=== PATIENT | female | born 1960 | race Caucasian/White ===

== ENCOUNTER 2016-12-28 12:57 | Emergency (ER) | payer MEDICARE, MEDICAID ==
[~2016-12-28] VITALS: Ht 152.4 cm; Wt 52.3 kg
[~2016-12-28 12:57] MED LIST: BENZ1TAB10 PO; DIVA500T35 PO; DSS100 PO; LISI-661 PO; METF500T4 PO; OMEP20 PO; RISPC50 IM; SIMV-260 PO
[2016-12-28 13:17] LABS: GLUCOSE,POINT OF CARE 254 MG/DL (70-110)
[2016-12-28] MEDS ORDERED: GLIP5 PO (13:25)
[2016-12-28] MEDS ORDERED: QUET200T PO (13:25)
[2016-12-28] MEDS ORDERED: LIDOCAINE HCL 1%/EPI 1:200,000/PF 10 ML VIAL INJ ONE (13:45)
[2016-12-28] MEDS ORDERED: ACETAMINOPHEN 500 MG TABLET PO ONE (14:00)
[2016-12-28 14:27] VITALS: BP 140/9
== END 2016-12-28 15:03 | disposition home or self-care (01) ==
LOC: EMS 12:59
DX: S01.111A Laceration without foreign body of right eyelid and periocular area, initial encounter (principal); E11.9 Type 2 diabetes mellitus without complications; I10 Essential (primary) hypertension; F17.200 Nicotine dependence, unspecified, uncomplicated; Z88.0 Allergy status to penicillin; Y08.89XA Assault by other specified means, initial encounter; Y93.89 Activity, other specified; Y92.89 Other specified places as the place of occurrence of the external cause; Y99.8 Other external cause status
CPT/HCPCS: 12011; 82962; 99283; J3490

== ENCOUNTER 2017-03-11 12:25 | Emergency (ER) | payer MEDICARE, MEDICAID ==
[~2017-03-11] VITALS: Ht 154.9 cm; Wt 54.5 kg
[~2017-03-11 12:25] MED LIST changes: -DIVA500T35 PO; -DSS100 PO; +GLIP5 PO; -OMEP20 PO; +QUET200T PO; -RISPC50 IM; -SIMV-260 PO
[2017-03-11 12:47] LABS: GLUCOSE,POINT OF CARE 164 MG/DL (70-110)
[2017-03-11 13:16] VITALS: BP 154/81
== END 2017-03-11 15:36 | disposition left against medical advice (07) ==
LOC: EMS 12:27
DX: S13.4XXA Sprain of ligaments of cervical spine, initial encounter (principal); S00.83XA Contusion of other part of head, initial encounter; E11.9 Type 2 diabetes mellitus without complications; I10 Essential (primary) hypertension; F17.210 Nicotine dependence, cigarettes, uncomplicated; Z88.0 Allergy status to penicillin; Y04.2XXA Assault by strike against or bumped into by another person, initial encounter; Y93.89 Activity, other specified; Y92.89 Other specified places as the place of occurrence of the external cause; Y99.8 Other external cause status
CPT/HCPCS: 82962; 99283

== ENCOUNTER 2017-03-21 18:30 | Emergency (ER) | payer MEDICARE, MEDICAID ==
[~2017-03-21] VITALS: Ht 154.9 cm; Wt 52.0 kg
[2017-03-21 18:32] VITALS: BP 133/90
[2017-03-21 18:47] LABS: GLUCOSE,POINT OF CARE 195 MG/DL (70-110)
[2017-03-21 19:29] LABS: APPEARANCE,URINE CLEAR (CLEAR); GLUCOSE, URINE (UA) NEGATIVE (NEGATIVE); KETONES,URINE NEGATIVE (NEGATIVE); LEUKOCYTE ESTERASE ,URINE SMALL (NEGATIVE); OCCULT BLOOD,URINE NEGATIVE (NEGATIVE); PROTEIN,URINE NEGATIVE (NEGATIVE)
[2017-03-21 19:30] LABS: ADD UA MICROSCOPIC YES
[2017-03-21 19:31] LABS: RBC,URINE 0-2 /HPF (0-2); SQUAMOUS EPITHELIAL CELL,UR Few /LPF (None Seen); WBC,URINE 26-50 /HPF (0-5)
[2017-03-21 19:54] LABS: BASOPHILS % (AUTO) 0.5 % (0.0-2.0); EOSINOPHILS % (AUTO) 3.5 % (1.0-6.0); HEMATOCRIT 36.7 % (36-46); HEMOGLOBIN 12.3 g/dL (12.0-16.0); LYMPHOCYTES # (AUTO) 2.2 K/uL (1.0-4.8); LYMPHOCYTES % (AUTO) 39.2 % (22.0-44.0); MEAN CORPUSCULAR HEMOGLOBIN 29.3 pg (26.0-34.0); MEAN CORPUSCULAR HGB CONC 33.7 G/dL (31.0-37.0); MEAN CORPUSCULAR VOLUME 87 fL (80-100); MONOCYTES # (AUTO) 0.4 K/uL (0.1-1.0); MONOCYTES % (AUTO) 7.5 % (2.0-9.0); NEUTROPHILS # (AUTO) 2.8 K/uL (1.8-7.7); NEUTROPHILS % (AUTO) 49.3 % (40.0-70.0); PLATELET COUNT (AUTO) 293 K/uL (150-450); RED BLOOD CELL COUNT(AUTO) 4.21 MIL/uL (4.00-5.20); RED CELL DISTRIBUTION WIDTH 14.7 % (11.5-14.5); WHITE BLOOD COUNT (AUTO) 5.6 K/uL (4.5-11.0)
[2017-03-21 20:03] LABS: ANION GAP 10 mmol/L (8-16); CALCIUM, TOTAL 8.9 mg/dL (8.8-10.5); CARBON DIOXIDE 26 mmol/L (22-29); CHLORIDE 104 mmol/L (98-107); CREATININE 0.84 mg/dL (0.60-1.30); GLOMERULAR FILTR. RATE CALC > 60 mL/min (>60); POTASSIUM 3.6 mmol/L (3.5-5.1); SODIUM SERUM 140 mmol/L (136-145); UREA NITROGEN, BLOOD 11 mg/dL (7-18)
[2017-03-21 20:17] LABS: ALANINE AMINOTRANSFERASE 16 U/L (12-78); ALBUMIN 3.4 g/dL (3.4-5.0); ASPARTATE AMINOTRANSFERASE 17 U/L (15-37); BILIRUBIN,TOTAL 0.2 mg/dL (0.1-1.0); TOTAL PROTEIN, SERUM 6.7 g/dL (6.4-8.2)
== END 2017-03-21 21:04 | disposition left against medical advice (07) ==
LOC: EMS 18:31
DX: N39.0 Urinary tract infection, site not specified (principal); I10 Essential (primary) hypertension; E11.9 Type 2 diabetes mellitus without complications; F17.200 Nicotine dependence, unspecified, uncomplicated; Z88.0 Allergy status to penicillin
CPT/HCPCS: 82962; 87086; 93005; 99285

== ENCOUNTER 2017-04-02 08:20 | Emergency (ER) | payer MEDICARE, MEDICAID ==
[~2017-04-02] VITALS: Ht 154.9 cm; Wt 52.2 kg
[2017-04-02 08:23] VITALS: BP 158/96
[2017-04-02] MEDS ORDERED: HALO1 PO (08:25)
== END 2017-04-02 08:40 | disposition left against medical advice (07) ==
LOC: EMS 08:21
DX: Z76.0 Encounter for issue of repeat prescription (principal); E11.9 Type 2 diabetes mellitus without complications; I10 Essential (primary) hypertension; F17.210 Nicotine dependence, cigarettes, uncomplicated; Z88.0 Allergy status to penicillin
CPT/HCPCS: 82962; 99281; 99282

== ENCOUNTER 2018-08-15 12:09 | Inpatient (IN) | payer MEDICARE, MEDICAID ==
[~2018-08-15] VITALS: Ht 152.4 cm; Wt 49.6 kg
[~2018-08-15 12:09] MED LIST changes: +HALO1 PO; +METF-960 PO; -METF500T4 PO
[2018-08-15 15:44] LABS: BASOPHILS % (AUTO) 0.7 % (0.0-2.0); EOSINOPHILS % (AUTO) 1.6 % (1.0-6.0); HEMATOCRIT 42.6 % (36-46); HEMOGLOBIN 14.2 g/dL (12.0-16.0); LYMPHOCYTES # (AUTO) 1.7 K/uL (1.0-4.8); LYMPHOCYTES % (AUTO) 24.4 % (22.0-44.0); MEAN CORPUSCULAR HEMOGLOBIN 30.3 pg (26.0-34.0); MEAN CORPUSCULAR HGB CONC 33.4 G/dL (31.0-37.0); MEAN CORPUSCULAR VOLUME 91 fL (80-100); MONOCYTES # (AUTO) 0.4 K/uL (0.1-1.0); MONOCYTES % (AUTO) 5.2 % (2.0-9.0); NEUTROPHILS # (AUTO) 4.7 K/uL (1.8-7.7); NEUTROPHILS % (AUTO) 68.1 % (40.0-70.0); PLATELET COUNT (AUTO) 363 K/uL (150-450); RED BLOOD CELL COUNT(AUTO) 4.69 MIL/uL (4.00-5.20); RED CELL DISTRIBUTION WIDTH 13.2 % (11.5-14.5)
[2018-08-15 15:48] LABS: ANION GAP 12 mmol/L (8-16); CALCIUM, TOTAL 8.8 mg/dL (8.8-10.5); CARBON DIOXIDE 26 mmol/L (22-29); CHLORIDE 99 mmol/L (98-107); CREATININE 0.93 mg/dL (0.60-1.30); GLOMERULAR FILTR. RATE CALC > 60 mL/min (>60); GLUCOSE,RANDOM 328 mg/dL (70-110); POTASSIUM 4.1 mmol/L (3.5-5.1); SODIUM SERUM 137 mmol/L (136-145); UREA NITROGEN, BLOOD 10 mg/dL (7-18)
[2018-08-15 15:56] LABS: ALANINE AMINOTRANSFERASE 18 U/L (12-78); ALBUMIN 3.5 g/dL (3.4-5.0); ALKALINE PHOSPHATASE 80 U/L (46-116); ASPARTATE AMINOTRANSFERASE 9 U/L (15-37); BILIRUBIN,TOTAL 0.2 mg/dL (0.1-1.0)
[2018-08-15 15:58] LABS: GLUCOSE,POINT OF CARE 294 MG/DL (70-110)
[2018-08-15 17:17] LABS: AMPHET/METH SCREEN,URINE NEGATIVE (NEGATIVE); BARBITURATE SCREEN, URINE NEGATIVE (NEGATIVE); BENZODIAZEPINES SCREEN,URINE NEGATIVE (NEGATIVE); CANNABINOID SCREEN,URINE NEGATIVE (NEGATIVE); COCAINE SCREEN,URINE NEGATIVE (NEGATIVE); METHADONE SCREEN, URINE NEGATIVE (NEGATIVE); OPIATE SCREEN,URINE NEGATIVE (NEGATIVE)
[2018-08-15 17:18] LABS: PHENCYCLIDINE SCREEN,URINE NEGATIVE (NEGATIVE)
[2018-08-15] MEDS ORDERED: ZOLPIDEM TARTRATE 10 MG TABLET PO PRN (19:30)
[2018-08-15] MEDS ORDERED: HALOPERIDOL 5 MG TABLET PO PRN (19:30)
[2018-08-15 19:57] LABS: HEMOGLOBIN A1C 7.4 % (4.5-6.2)
[2018-08-15 20:07] LABS: CHOL/HDL RATIO 4.9 (3.9-5.7); CHOLESTEROL 252 mg/dL (131-200); FREE T4 (FREE THYROXINE) 1.15 ng/dL (0.76-1.46); HDL CHOLESTEROL 51 mg/dL (40-60); LDL CHOL (CALC.) 126 mg/dL (0-130); THYROID STIMULATING HORMONE 0.55 uIU/mL (0.36-3.74); TRIGLYCERIDES 373 mg/dL (15-150)
[2018-08-15 21:24] LABS: GLUCOSE,POINT OF CARE 268 MG/DL (70-110)
[2018-08-15 21:43] VITALS: BP 132/89
[2018-08-15] MEDS ORDERED: ONDANSETRON HCL 4 MG TABLET PO PRN (22:00)
[2018-08-15] MEDS ORDERED: CloNIDine HCL 0.1 MG TABLET PO PRN (22:00)
[2018-08-15] MEDS ORDERED: IBUPROFEN 400 MG TABLET PO PRN (22:00)
[2018-08-15] MEDS ORDERED: MAGNESIUM HYDROXIDE SUSPENSION 30 ML UDCUP PO PRN (22:00)
[2018-08-15] MEDS ORDERED: DOCUSATE SODIUM 100 MG CAPSULE PO PRN (22:00)
[2018-08-15] MEDS ORDERED: ALBUTEROL SULFATE HFA 90 MCG/PUFF 8 GM INHALER IH PRN (22:00)
[2018-08-15] MEDS ORDERED: GLUCAGON,HUMAN RECOMBINANT 1 MG VIAL IM PRN (22:00)
[2018-08-15] MEDS ORDERED: LOPERAMIDE HCL 2 MG CAPSULE PO PRN (22:00)
[2018-08-15] MEDS ORDERED: GuaiFENesin/D-METHORPHAN [SUGAR-FREE] 200-20MG/10 ML SYRUP UDCUP PO PRN (22:00)
[2018-08-15] MEDS ORDERED: PETROLATUM,WHITE 71 GM JELLY TP PRN (22:00)
[2018-08-15] MEDS ORDERED: MAG HYDROX/AL HYDROX/SIMETH ES 30 ML SUSPENSION UDCUP PO PRN (22:00)
[2018-08-15] MEDS ORDERED: ACETAMINOPHEN 325 MG TABLET PO PRN (22:00)
[2018-08-16 00:10] VITALS: BP 129/79
[2018-08-16 05:50] LABS: GLUCOMETER DEV NAME(LOC) 3EX.; GLUCOSE,POINT OF CARE 161 MG/DL (70-110)
[2018-08-16] MEDS: GlipiZIDE 5 MG TABLET PO SCH (06:55)
[2018-08-16] MEDS: INSULIN LISPRO 100 UNITS/ML SQ PRN (06:58)
[2018-08-16] MEDS: LISINOPRIL 10 MG TABLET PO SCH (08:10)
[2018-08-16] MEDS: NICOTINE 14 MG/24 HOUR PATCH TD SCH (08:14)
[2018-08-16 09:16] VITALS: BP 148/96
[2018-08-16 11:04] LABS: GLUCOMETER DEV NAME(LOC) 3E.I; GLUCOSE,POINT OF CARE 78 MG/DL (70-110)
[2018-08-16] MEDS: BENZTROPINE MESYLATE 1 MG TABLET PO SCH (16:31)
[2018-08-16 16:35] LABS: GLUCOMETER DEV NAME(LOC) 3E.I; GLUCOSE,POINT OF CARE 195 MG/DL (70-110)
[2018-08-16] MEDS: QUEtiapine FUMARATE 200 MG TABLET PO SCH (20:15)
[2018-08-16 21:31] VITALS: BP 135/89
[2018-08-17 05:39] LABS: GLUCOMETER DEV NAME(LOC) 3EX.; GLUCOSE,POINT OF CARE 192 MG/DL (70-110)
[2018-08-17] MEDS: GlipiZIDE 5 MG TABLET PO SCH (06:45)
[2018-08-17] MEDS: INSULIN LISPRO 100 UNITS/ML SQ PRN (06:45)
[2018-08-17 07:12] LABS: ALANINE AMINOTRANSFERASE 20 U/L (12-78); ALBUMIN 3.5 g/dL (3.4-5.0); ALKALINE PHOSPHATASE 71 U/L (46-116); ANION GAP 6 mmol/L (8-16); ASPARTATE AMINOTRANSFERASE 13 U/L (15-37); BILIRUBIN,TOTAL 0.2 mg/dL (0.1-1.0); CALCIUM, TOTAL 9.1 mg/dL (8.8-10.5); CARBON DIOXIDE 31 mmol/L (22-29); CHLORIDE 102 mmol/L (98-107); CHOL/HDL RATIO 4.3 (3.9-5.7); CHOLESTEROL 270 mg/dL (131-200); GLOMERULAR FILTR. RATE CALC > 60 mL/min (>60); GLUCOSE,RANDOM 174 mg/dL (70-110); HDL CHOLESTEROL 63 mg/dL (40-60); LDL CHOL (CALC.) 181 mg/dL (0-130); POTASSIUM 5.2 mmol/L (3.5-5.1); SODIUM SERUM 139 mmol/L (136-145); THYROID STIMULATING HORMONE 1.16 uIU/mL (0.36-3.74); TOTAL PROTEIN, SERUM 6.6 g/dL (6.4-8.2); TRIGLYCERIDES 131 mg/dL (15-150); UREA NITROGEN, BLOOD 15 mg/dL (7-18)
[2018-08-17 08:05] VITALS: BP 122/69
[2018-08-17] MEDS: BENZTROPINE MESYLATE 1 MG TABLET PO SCH ×2 (09:00→16:25)
[2018-08-17] MEDS: LISINOPRIL 10 MG TABLET PO SCH (09:34)
[2018-08-17] MEDS: NICOTINE 14 MG/24 HOUR PATCH TD SCH (09:34)
[2018-08-17] MEDS: LORazepam 2 MG TABLET PO PRN ×2 (09:48→16:25)
[2018-08-17] MEDS ORDERED: SODIUM POLYSTYRENE SULFONATE 15 GM/60 ML SUSPENSION BOTTLE PO ONE (15:30)
[2018-08-17 18:09] LABS: GLUCOMETER DEV NAME(LOC) 3E.I; GLUCOSE,POINT OF CARE 111 MG/DL (70-110)
[2018-08-17] MEDS: QUEtiapine FUMARATE 200 MG TABLET PO SCH (20:12)
[2018-08-17 20:28] LABS: GLUCOMETER DEV NAME(LOC) 3E.I; GLUCOSE,POINT OF CARE 277 MG/DL (70-110)
[2018-08-17 20:37] VITALS: BP 124/77
[2018-08-18] MEDS: INSULIN LISPRO 100 UNITS/ML SQ PRN (06:07)
[2018-08-18 06:09] LABS: GLUCOMETER DEV NAME(LOC) 3EX.; GLUCOSE,POINT OF CARE 178 MG/DL (70-110)
[2018-08-18] MEDS: GlipiZIDE 5 MG TABLET PO SCH (06:28)
[2018-08-18] MEDS: BENZTROPINE MESYLATE 1 MG TABLET PO SCH (09:00)
[2018-08-18] MEDS: LISINOPRIL 10 MG TABLET PO SCH (09:22)
[2018-08-18] MEDS: NICOTINE 14 MG/24 HOUR PATCH TD SCH (09:22)
[2018-08-18 10:56] VITALS: BP 128/74
[2018-08-18] MEDS: LORazepam 2 MG TABLET PO PRN (11:08)
[2018-08-18 17:00] VITALS: BP 118/77
[2018-08-18] MEDS: QUEtiapine FUMARATE 200 MG TABLET PO SCH (20:21)
[2018-08-19 05:50] LABS: GLUCOMETER DEV NAME(LOC) 3E.I; GLUCOSE,POINT OF CARE 195 MG/DL (70-110)
[2018-08-19] MEDS: GlipiZIDE 5 MG TABLET PO SCH (06:29)
[2018-08-19] MEDS: INSULIN LISPRO 100 UNITS/ML SQ PRN ×2 (07:10→21:16)
[2018-08-19] MEDS: LORazepam 2 MG TABLET PO PRN (08:31)
[2018-08-19] MEDS: LISINOPRIL 10 MG TABLET PO SCH (08:32)
[2018-08-19] MEDS: NICOTINE 14 MG/24 HOUR PATCH TD SCH (08:32)
[2018-08-19 09:32] VITALS: BP 123/80
[2018-08-19 11:19] LABS: GLUCOMETER DEV NAME(LOC) 3EX.; GLUCOSE,POINT OF CARE 73 MG/DL (70-110)
[2018-08-19 16:00] VITALS: BP 123/76
[2018-08-19] MEDS: QUEtiapine FUMARATE 200 MG TABLET PO SCH ×2 (21:00→21:04)
[2018-08-19 21:19] LABS: GLUCOMETER DEV NAME(LOC) 3EX.; GLUCOSE,POINT OF CARE 276 MG/DL (70-110)
[2018-08-20] MEDS: INSULIN LISPRO 100 UNITS/ML SQ PRN ×2 (06:34→22:36)
[2018-08-20] MEDS: GlipiZIDE 5 MG TABLET PO SCH (06:34)
[2018-08-20 06:35] LABS: GLUCOMETER DEV NAME(LOC) 3EX.; GLUCOSE,POINT OF CARE 164 MG/DL (70-110)
[2018-08-20] MEDS: LISINOPRIL 10 MG TABLET PO SCH (08:07)
[2018-08-20] MEDS: NICOTINE 14 MG/24 HOUR PATCH TD SCH (08:07)
[2018-08-20 09:42] VITALS: BP 144/66
[2018-08-20 11:29] LABS: GLUCOMETER DEV NAME(LOC) 3EX.; GLUCOSE,POINT OF CARE 181 MG/DL (70-110)
[2018-08-20 16:21] VITALS: BP 137/58
[2018-08-20] MEDS: QUEtiapine FUMARATE 200 MG TABLET PO SCH (20:30)
[2018-08-21] MEDS: GlipiZIDE 5 MG TABLET PO SCH (06:34)
[2018-08-21] MEDS: NICOTINE 14 MG/24 HOUR PATCH TD SCH (09:00)
[2018-08-21] MEDS: LISINOPRIL 10 MG TABLET PO SCH (09:00)
[2018-08-21 09:39] LABS: GLUCOMETER DEV NAME(LOC) 3EX.; GLUCOSE,POINT OF CARE 249 MG/DL (70-110)
[2018-08-21 10:52] VITALS: BP 120/71
[2018-08-21 11:05] LABS: GLUCOMETER DEV NAME(LOC) 3E.I; GLUCOSE,POINT OF CARE 162 MG/DL (70-110)
[2018-08-21 11:56] LABS: GLUCOMETER DEV NAME(LOC) 3E.I; GLUCOSE,POINT OF CARE 111 MG/DL (70-110)
[2018-08-21 16:14] LABS: GLUCOMETER DEV NAME(LOC) 3EX.; GLUCOSE,POINT OF CARE 178 MG/DL (70-110)
[2018-08-21 17:00] VITALS: BP 128/84
[2018-08-21] MEDS: INSULIN LISPRO 100 UNITS/ML SQ PRN ×2 (17:08→20:58)
[2018-08-21] MEDS: QUEtiapine FUMARATE 200 MG TABLET PO SCH (20:14)
[2018-08-21 20:51] LABS: GLUCOMETER DEV NAME(LOC) 3EX.; GLUCOSE,POINT OF CARE 294 MG/DL (70-110)
[2018-08-22 05:56] LABS: GLUCOMETER DEV NAME(LOC) 3E.I; GLUCOSE,POINT OF CARE 159 MG/DL (70-110)
[2018-08-22] MEDS: GlipiZIDE 5 MG TABLET PO SCH (06:19)
[2018-08-22 07:45] VITALS: BP 112/82
[2018-08-22 08:00] VITALS: BP 112/82
[2018-08-22] MEDS: LISINOPRIL 10 MG TABLET PO SCH (08:00)
[2018-08-22] MEDS: NICOTINE 14 MG/24 HOUR PATCH TD SCH (08:01)
[2018-08-22 11:29] LABS: GLUCOMETER DEV NAME(LOC) 3EX.; GLUCOSE,POINT OF CARE 94 MG/DL (70-110)
[2018-08-22 16:58] VITALS: BP 157/76
[2018-08-22 19:23] LABS: GLUCOMETER DEV NAME(LOC) 3EX.; GLUCOSE,POINT OF CARE 116 MG/DL (70-110)
[2018-08-22] MEDS: INSULIN LISPRO 100 UNITS/ML SQ PRN (20:11)
[2018-08-22] MEDS: QUEtiapine FUMARATE 200 MG TABLET PO SCH (20:20)
[2018-08-22] MEDS: LORazepam 2 MG TABLET PO PRN (22:23)
[2018-08-22 23:03] LABS: GLUCOMETER DEV NAME(LOC) 3EX.; GLUCOSE,POINT OF CARE 353 MG/DL (70-110)
[2018-08-23] MEDS: GlipiZIDE 5 MG TABLET PO SCH (06:46)
[2018-08-23 06:49] LABS: GLUCOMETER DEV NAME(LOC) 3E.I; GLUCOSE,POINT OF CARE 185 MG/DL (70-110)
[2018-08-23] MEDS: NICOTINE 14 MG/24 HOUR PATCH TD SCH (07:59)
[2018-08-23] MEDS: LORazepam 2 MG TABLET PO PRN (07:59)
[2018-08-23] MEDS: LISINOPRIL 10 MG TABLET PO SCH (07:59)
[2018-08-23 09:23] VITALS: BP 140/95
[2018-08-23 17:09] LABS: GLUCOMETER DEV NAME(LOC) 3EX.; GLUCOSE,POINT OF CARE 227 MG/DL (70-110)
[2018-08-23] MEDS: INSULIN LISPRO 100 UNITS/ML SQ PRN ×2 (17:12→21:10)
[2018-08-23] MEDS: QUEtiapine FUMARATE 200 MG TABLET PO SCH (21:09)
[2018-08-23 21:13] LABS: GLUCOMETER DEV NAME(LOC) 3EX.; GLUCOSE,POINT OF CARE 250 MG/DL (70-110)
[2018-08-24 06:04] LABS: GLUCOMETER DEV NAME(LOC) 3E.I; GLUCOSE,POINT OF CARE 168 MG/DL (70-110)
[2018-08-24] MEDS: GlipiZIDE 5 MG TABLET PO SCH (06:50)
[2018-08-24] MEDS: LISINOPRIL 10 MG TABLET PO SCH (08:49)
[2018-08-24] MEDS: NICOTINE 14 MG/24 HOUR PATCH TD SCH (08:50)
[2018-08-24 11:33] LABS: GLUCOMETER DEV NAME(LOC) 3EX.; GLUCOSE,POINT OF CARE 194 MG/DL (70-110)
[2018-08-24 15:54] LABS: GLUCOMETER DEV NAME(LOC) 3EX.; GLUCOSE,POINT OF CARE 184 MG/DL (70-110)
[2018-08-24 16:15] VITALS: BP 108/75
[2018-08-24] MEDS: INSULIN LISPRO 100 UNITS/ML SQ PRN ×2 (19:36→21:37)
[2018-08-24] MEDS: QUEtiapine FUMARATE 200 MG TABLET PO SCH (20:39)
[2018-08-24 21:38] LABS: GLUCOMETER DEV NAME(LOC) 3EX.; GLUCOSE,POINT OF CARE 240 MG/DL (70-110)
[2018-08-25] MEDS: GlipiZIDE 5 MG TABLET PO SCH (06:22)
[2018-08-25 06:39] LABS: GLUCOMETER DEV NAME(LOC) 3EX.; GLUCOSE,POINT OF CARE 154 MG/DL (70-110)
[2018-08-25] MEDS: INSULIN LISPRO 100 UNITS/ML SQ PRN ×4 (06:46→21:05)
[2018-08-25] MEDS: LISINOPRIL 10 MG TABLET PO SCH (08:53)
[2018-08-25] MEDS: LORazepam 2 MG TABLET PO PRN (08:54)
[2018-08-25] MEDS: NICOTINE 14 MG/24 HOUR PATCH TD SCH (08:54)
[2018-08-25 11:03] LABS: GLUCOMETER DEV NAME(LOC) 3EX.; GLUCOSE,POINT OF CARE 182 MG/DL (70-110)
[2018-08-25 16:44] LABS: GLUCOMETER DEV NAME(LOC) 3EX.; GLUCOSE,POINT OF CARE 234 MG/DL (70-110)
[2018-08-25] MEDS: QUEtiapine FUMARATE 200 MG TABLET PO SCH (20:52)
[2018-08-25 21:08] LABS: GLUCOMETER DEV NAME(LOC) 3EX.; GLUCOSE,POINT OF CARE 259 MG/DL (70-110)
[2018-08-26 06:04] LABS: GLUCOMETER DEV NAME(LOC) 3EX.; GLUCOSE,POINT OF CARE 138 MG/DL (70-110)
[2018-08-26] MEDS: GlipiZIDE 5 MG TABLET PO SCH (06:56)
[2018-08-26 08:00] VITALS: BP 128/80
[2018-08-26] MEDS: LORazepam 2 MG TABLET PO PRN (08:24)
[2018-08-26] MEDS: LISINOPRIL 10 MG TABLET PO SCH (08:24)
[2018-08-26] MEDS: NICOTINE 14 MG/24 HOUR PATCH TD SCH (08:29)
[2018-08-26 11:24] LABS: GLUCOMETER DEV NAME(LOC) 3E.C; GLUCOSE,POINT OF CARE 132 MG/DL (70-110)
[2018-08-26] MEDS: INSULIN LISPRO 100 UNITS/ML SQ PRN ×3 (11:30→21:41)
[2018-08-26 16:28] LABS: GLUCOMETER DEV NAME(LOC) 3EX.; GLUCOSE,POINT OF CARE 239 MG/DL (70-110)
[2018-08-26 16:47] VITALS: BP 99/64
[2018-08-26] MEDS: QUEtiapine FUMARATE 200 MG TABLET PO SCH (20:55)
[2018-08-26 21:54] LABS: GLUCOMETER DEV NAME(LOC) 3EX.; GLUCOSE,POINT OF CARE 199 MG/DL (70-110)
[2018-08-27 06:49] LABS: GLUCOMETER DEV NAME(LOC) 3EX.; GLUCOSE,POINT OF CARE 152 MG/DL (70-110)
[2018-08-27] MEDS: GlipiZIDE 5 MG TABLET PO SCH (06:57)
[2018-08-27 09:04] VITALS: BP 121/70
[2018-08-27] MEDS: NICOTINE 14 MG/24 HOUR PATCH TD SCH (09:21)
[2018-08-27] MEDS: LISINOPRIL 10 MG TABLET PO SCH (09:21)
[2018-08-27 11:28] LABS: GLUCOMETER DEV NAME(LOC) 3E.C; GLUCOSE,POINT OF CARE 113 MG/DL (70-110)
== END 2018-08-27 18:00 | disposition home or self-care (01) | DRG 885 ==
LOC: EMS 12:10 → 3EX 21:21
PROVIDERS: ADMIT Psychiatry & Neurology Psychiatry; ATTEND Psychiatry & Neurology Psychiatry
DX: F20.0 Paranoid schizophrenia (principal); E11.9 Type 2 diabetes mellitus without complications; E78.5 Hyperlipidemia, unspecified; E87.5 Hyperkalemia; F17.200 Nicotine dependence, unspecified, uncomplicated; I10 Essential (primary) hypertension; I25.10 Atherosclerotic heart disease of native coronary artery without angina pectoris; J44.9 Chronic obstructive pulmonary disease, unspecified; Z86.73 Personal history of transient ischemic attack (TIA), and cerebral infarction without residual deficits; Z71.6 Tobacco abuse counseling; Z91.5 Personal history of self-harm; Z72.89 Other problems related to lifestyle; Z71.51 Drug abuse counseling and surveillance of drug abuser; Z79.899 Other long term (current) drug therapy; Z88.0 Allergy status to penicillin
CPT/HCPCS: 83036; 84132; 84439; 84443; G0378; G0480

== ENCOUNTER 2018-09-23 03:54 | Emergency (ER) | payer MEDICARE, MEDICAID ==
[~2018-09-23 03:54] MED LIST changes: -BENZ1TAB10 PO; -HALO1 PO; -METF-960 PO
== END 2018-09-23 03:57 | disposition left against medical advice (07) ==
LOC: EMS 03:56
DX: Z00.00 Encounter for general adult medical examination without abnormal findings (principal); Z53.21 Procedure and treatment not carried out due to patient leaving prior to being seen by health care provider

== ENCOUNTER 2018-10-13 20:11 | Emergency (ER) | payer MEDICARE, MEDICAID | END 2018-10-13 20:44 | disposition left against medical advice (07) | LOC: EMS 20:12 | DX: Z00.8 Encounter for other general examination (principal); Z53.21 Procedure and treatment not carried out due to patient leaving prior to being seen by health care provider ==

== ENCOUNTER 2018-11-19 12:58 | Emergency (ER) | payer MEDICARE, MEDICAID ==
[~2018-11-19] VITALS: Ht 152.4 cm; Wt 50.0 kg
[2018-11-19 13:02] VITALS: BP 163/79
== END 2018-11-19 13:50 | disposition left against medical advice (07) ==
LOC: EMS 13:00
DX: Z53.21 Procedure and treatment not carried out due to patient leaving prior to being seen by health care provider (principal)

== ENCOUNTER 2018-12-04 19:07 | Emergency (ER) | payer MEDICARE, MEDICAID | END 2018-12-04 19:51 | disposition left against medical advice (07) | LOC: EMS 19:10 | DX: Z00.00 Encounter for general adult medical examination without abnormal findings (principal); Z53.21 Procedure and treatment not carried out due to patient leaving prior to being seen by health care provider ==